=== PATIENT | male | born 1985 | race Caucasian/White ===

== ENCOUNTER 2020-12-13 23:39 | Emergency (ER) | payer SELFPAY ==
[~2020-12-13] VITALS: Ht 170.2 cm; Wt 77.1 kg
--- NOTE | 2020-12-13 23:58 | NUR ---
MD Noyola in room to do MSE.
[2020-12-14] MEDS ORDERED: AZITHROMYCIN 250 MG TABLET PO ONE
[2020-12-14] MEDS ORDERED: KETOROLAC TROMETHAMINE 15 MG INJ IM ONE
[2020-12-14] MEDS ORDERED: DEXAMETHASONE SOD PHOSPHATE 4 MG INJ IM ONE
[2020-12-14] MEDS ORDERED: AZIT250T13 PO (00:11)
[2020-12-14] MEDS ORDERED: IBUP-1955 PO (00:11)
[2020-12-14] MEDS ORDERED: KETOROLAC TROMETHAMINE 15 MG INJ ONE (00:12)
[2020-12-14] MEDS ORDERED: DEXAMETHASONE SOD PHOSPHATE 10 MG INJ ONE (00:12)
[2020-12-14] MEDS ORDERED: AZITHROMYCIN 250 MG TABLET ONE (00:12)
--- NOTE | 2020-12-14 00:33 | NUR ---
Patient discharged to home in stable condition. Written and verbal after care instructions given. Patient verbalizes understanding of instructions. Stressed follow up or return to ER for worsening s/s.
[2020-12-14 00:34] VITALS: BP 153/107
== END 2020-12-14 00:34 | disposition home or self-care (01) ==
LOC: ER 23:48
DX: J02.8 Acute pharyngitis due to other specified organisms (principal); R03.0 Elevated blood-pressure reading, without diagnosis of hypertension
CPT/HCPCS: 96372 ×2; 99284; J1100; J1885; A4663; Q0144